=== PATIENT | female | born 1975 | race American Indian/Alaskan Native ===

== ENCOUNTER 2019-10-29 11:22 | Emergency (ER) | payer SELFPAY ==
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
[2019-10-29 15:04] VITALS: BP 152/103
== END 2019-10-29 15:25 | disposition home or self-care (01) ==
LOC: ED 11:22
DX: M54.42 Lumbago with sciatica, left side (principal); M23.91 Unspecified internal derangement of right knee; Z79.899 Other long term (current) drug therapy; Z88.0 Allergy status to penicillin; V49.49XA Driver injured in collision with other motor vehicles in traffic accident, initial encounter; Y93.89 Activity, other specified; Y92.488 Other paved roadways as the place of occurrence of the external cause; Y99.8 Other external cause status
CPT/HCPCS: 72100